=== PATIENT | female | born 1960 | race Caucasian/White ===

== ENCOUNTER 2016-05-30 11:54 | Emergency (ER) | payer OTHER ==
[~2016-05-30] VITALS: Ht 170.2 cm; Wt 67.0 kg
[~2016-05-30 11:54] MED LIST: ADULT LOW DOSE81 M1 PO; ALEVE220 M2 PO; ATROVENT 0.06% NS; AZULFIDINE500 MG PO; Azulfidine PO; BENTYL10 MG PO; BENTYL20 MG PO; CELEXA20 MG PO; COLACE100 MG PO; CORTEF5 M1 PO; CREON 20 EC CA497 MG PO; CREON PO; CYCLOBENZAPRINE10 MG PO; DILAUDID2 MG PO; EFFEXOR XR150 MG PO; Effexor XR PO; FLEET ENEMA-AD118 ML PR; FOLIC ACID1 MG PO; FOSAMAX70 M1 PO; Fosamax PO; GEODON60 MG PO; GEODON80 MG PO; HYDROCODON-ACE1 EAC8 PO; HYDROCORTISONE5 MG PO; Habitrol,Nicoderm CQ TD; KADIAN30 MG PO; KLONOPIN0.5 M1 PO; LIDODERM 5% P1 PATCH TD; LORTAB 7.5-3251 EACH PO; LOVASTATIN40 MG PO; MELOXICAM15 MG PO; MILK OF MAGN PO; MORPHINE SULFAT15 M1 PO; NEURONTIN300 MG PO; NEURONTIN600 M1 PO; NEXIUM40 MG PO; NITROLINGUAL4.9 GM MM; Neurontin PO; POTASSIUM GLUCONATE PO; PREDNISONE5 M2 PO; Proventil,Ventolin H IH; SENOKOT S,PE1 TABLET PO; STAGESIC 5-5001 EACH PO; SULFAZINE EC500 MG PO; SYMBICORT60 INHALAT IH; Symbicort 160-4.5 mc IH; THERAGRAN1 TABLET PO; Tylenol Regular Stre PO; VENLAFAXINE HC150 M1 PO; VENTOLIN HFA18 GM IH; VICODIN 5-3001 EACH PO; VITAMIN D50000 UNI1 PO; VOLTAREN 1% GE100 GM TP; Vicodin,Norco 5/325 PO; Vitamin D, Drisdol PO; XANAX0.25 MG PO; ZANTAC150 M1 PO; ZIPRASIDONE HCL40 MG PO; Zocor PO; celeXA PO; predniSONE PO
[2016-05-30 13:21] LABS: ADD MIUA? NO; BILIRUBIN NEGATIVE; BLOOD NEGATIVE; COLOR YELLOW ((YELLOW)); GLUCOSE (STRIP) NEGATIVE; KETONES NEGATIVE; LEUKOCYTES NEGATIVE; NITRITE NEGATIVE; PROTEIN (STRIP) NEGATIVE; SPECIFIC GRAVITY 1.006 (1.000-1.030); UCUL ADDED? NO; UROBILINOGEN 0.2 MG/DL (0.2-1.0)
[2016-05-30 14:50] LABS: HEMATOCRIT 37.7 % (36.0-46.0); MCH 29.5 PG (29.0-34.0); MCHC 32.4 G/DL (30.0-36.0); MCV 91.3 FL (83-99); MEAN PLAT.VOLUME 11.4 uM^3 (9.5-12.4); PLATELET COUNT 233 K/uL (156-360); RBC DIS.WIDTH-CV 15.3 % (11.8-14.6); RED BLOOD COUNT 4.13 M/uL (3.80-5.20); WHITE BLOOD COUNT 15.8 K/uL (4.1-10.2)
[2016-05-30 14:58] LABS: CHLORIDE 105 mEq/L (99-109)
[2016-05-30 14:59] LABS: POTASSIUM 4.3 mEq/L (3.7-5.4); SODIUM 141 mEq/L (136-147)
[2016-05-30 15:01] LABS: GLUCOSE 98 mg/dL (70-99)
[2016-05-30 15:02] LABS: ANION GAP 9 MEQ/L (2-14)
[2016-05-30 15:03] LABS: TOTAL BILIRUBIN 0.3 mg/dL (0.0-1.0)
[2016-05-30 15:04] LABS: ALKALINE PHOSPHATASE 88 IU/L (3-129); GFR ESTIMATE (CALCULATED) > 59 mL/min/
[2016-05-30 15:06] LABS: UREA NITROGEN (BUN) 12 mg/dL (9-23)
[2016-05-30 15:08] LABS: CREATINE KINASE 160 IU/L (1-294); LIPASE 42 U/L (1.0-51.0); TOTAL CK 160 IU/L (1-294)
[2016-05-30 15:15] LABS: CK-MB 2.3 ng/mL (0.0-4.9)
[2016-05-30] MEDS ORDERED: ULTRAM50 MG PO (15:41)
[2016-05-30 15:59] VITALS: BP 145/66
== END 2016-05-30 16:33 | disposition home or self-care (01) ==
LOC: RME 11:54 → EME 11:54 → RME 16:33
PROVIDERS: Physician Assistant
DX: R10.9 Unspecified abdominal pain (principal); Z87.440 Personal history of urinary (tract) infections; G89.29 Other chronic pain; J44.9 Chronic obstructive pulmonary disease, unspecified; M79.7 Fibromyalgia; K21.9 Gastro-esophageal reflux disease without esophagitis; R56.9 Unspecified convulsions; Z85.828 Personal history of other malignant neoplasm of skin; F17.200 Nicotine dependence, unspecified, uncomplicated
CPT/HCPCS: 74176; 80053; 81003; 82550; 82553; 83690; 85027; 99281; 99283

== ENCOUNTER 2016-06-22 14:40 | Emergency (ER) | payer OTHER ==
[~2016-06-22] VITALS: Ht 170.2 cm; Wt 65.9 kg
[~2016-06-22 14:40] MED LIST changes: +ULTRAM50 MG PO
[2016-06-22 15:15] LABS: HEMATOCRIT 36.6 % (36.0-46.0); MCH 30.5 PG (29.0-34.0); MCHC 33.1 G/DL (30.0-36.0); MCV 92.2 FL (83-99); MEAN PLAT.VOLUME 11.4 uM^3 (9.5-12.4); PLATELET COUNT 249 K/uL (156-360); RBC DIS.WIDTH-CV 15.5 % (11.8-14.6); RBC DIS.WIDTH-SD 50.2 % (39-53); RED BLOOD COUNT 3.97 M/uL (3.80-5.20); WHITE BLOOD COUNT 14.7 K/uL (4.1-10.2)
[2016-06-22 15:24] LABS: CHLORIDE 106 mEq/L (99-109); POTASSIUM 4.2 mEq/L (3.7-5.4)
[2016-06-22 15:25] LABS: SODIUM 143 mEq/L (136-147)
[2016-06-22 15:26] LABS: GLUCOSE 86 mg/dL (70-99)
[2016-06-22 15:28] LABS: ANION GAP 9 MEQ/L (2-14)
[2016-06-22 15:30] LABS: GFR ESTIMATE (CALCULATED) > 59 mL/min/
[2016-06-22 15:31] LABS: UREA NITROGEN (BUN) 7 mg/dL (9-23)
[2016-06-22] MEDS ORDERED: GABAPENTIN600 MG PO ×2 (17:37→17:39)
[2016-06-22] MEDS ORDERED: NEURONTIN600 MG PO (17:38)
[2016-06-22] MEDS ORDERED: POTASSIUM-9999 MG PO (17:43)
[2016-06-22] MEDS ORDERED: TIZANIDINE HCL2 MG PO (19:27)
[2016-06-22] MEDS ORDERED: MEDROL DOSEPAK4 MG PO (19:27)
[2016-06-22 20:14] VITALS: BP 137/56
== END 2016-06-22 20:19 | disposition home or self-care (01) ==
LOC: EME 14:40
DX: R20.2 Paresthesia of skin (principal); S16.1XXA Strain of muscle, fascia and tendon at neck level, initial encounter; G89.29 Other chronic pain; J44.9 Chronic obstructive pulmonary disease, unspecified; M79.7 Fibromyalgia; K21.9 Gastro-esophageal reflux disease without esophagitis; R56.9 Unspecified convulsions; Z85.828 Personal history of other malignant neoplasm of skin; F17.200 Nicotine dependence, unspecified, uncomplicated
CPT/HCPCS: 70450; 71020; 72125; 80048; 85027; 93005; 99281; 99284; J7512

== ENCOUNTER 2017-07-28 17:34 | Emergency (ER) | payer OTHER ==
[~2017-07-28] VITALS: Ht 167.6 cm; Wt 61.6 kg
[~2017-07-28 17:34] MED LIST changes: +GABAPENTIN600 MG PO; +MEDROL DOSEPAK4 MG PO; +NEURONTIN600 MG PO; +POTASSIUM-9999 MG PO; +TIZANIDINE HCL2 MG PO
[2017-07-28 18:13] LABS: HEMATOCRIT 37.4 % (36.0-46.0); HEMOGLOBIN 12.3 G/DL (11.9-15.5); MCH 31.2 PG (29.0-34.0); MCHC 32.9 G/DL (30.0-36.0); MCV 94.9 FL (83-99); RBC DIS.WIDTH-CV 17.8 % (11.8-14.6); RBC DIS.WIDTH-SD 61.3 % (39-53); RED BLOOD COUNT 3.94 M/uL (3.80-5.20); WHITE BLOOD COUNT 12.3 K/uL (4.1-10.2)
[2017-07-28 18:18] LABS: PLATELET COUNT 331 K/uL (156-360)
[2017-07-28 18:24] LABS: CHLORIDE 108 mEq/L (99-109); SODIUM 141 mEq/L (136-147)
[2017-07-28 18:26] LABS: GLUCOSE 109 mg/dL (70-99)
[2017-07-28 18:30] LABS: CREATININE 0.7 mg/dL (0.6-1.3); GFR ESTIMATE (CALCULATED) > 59 mL/min/
[2017-07-28 18:31] LABS: UREA NITROGEN (BUN) 11 mg/dL (9-23)
[2017-07-28 19:08] LABS: ALBUMIN 3.7 g/dL (3.2-4.8)
[2017-07-28 19:11] LABS: TOTAL PROTEIN 6.4 g/dL (6.4-8.3)
[2017-07-28 19:13] LABS: TOTAL BILIRUBIN 0.3 mg/dL (0.0-1.0)
[2017-07-28 19:14] LABS: ALKALINE PHOSPHATASE 61 IU/L (3-129)
[2017-07-28 19:16] LABS: AST (GOT) 37 IU/L (2-34); DIRECT BILIRUBIN 0.2 mg/dL (0.0-0.3)
[2017-07-28 19:17] LABS: ALT (GPT) 37 IU/L (3-49); LIPASE 4 U/L (1.0-51.0)
[2017-07-28 21:39] LABS: APPEARANCE CLEAR ((CLEAR)); BILIRUBIN NEGATIVE; BLOOD SMALL; COLOR STRAW ((YELLOW)); GLUCOSE (STRIP) NEGATIVE; KETONES NEGATIVE; LEUKOCYTES NEGATIVE; NITRITE NEGATIVE; PROTEIN (STRIP) NEGATIVE; SPECIFIC GRAVITY 1.027 (1.000-1.030); UROBILINOGEN 0.2 MG/DL (0.2-1.0)
[2017-07-28 21:41] LABS: BACTERIA NONE SEEN /HPF; EPITHELIAL CELLS RARE /HPF; MUCUS NONE SEEN /LPF; RED BLOOD CELLS 0-5 /HPF (0-5); UCUL ADDED? NO; WHITE BLOOD CELLS 0-5 /HPF (0-5)
[2017-07-28 22:48] VITALS: BP 153/88
== END 2017-07-28 23:02 | disposition home or self-care (01) ==
LOC: EME 17:34
DX: K59.00 Constipation, unspecified (principal); R10.9 Unspecified abdominal pain; R31.9 Hematuria, unspecified; J44.9 Chronic obstructive pulmonary disease, unspecified; F32.9 Major depressive disorder, single episode, unspecified; M79.7 Fibromyalgia; K21.9 Gastro-esophageal reflux disease without esophagitis; F41.9 Anxiety disorder, unspecified; R56.9 Unspecified convulsions; F17.200 Nicotine dependence, unspecified, uncomplicated; Z85.828 Personal history of other malignant neoplasm of skin; Z88.6 Allergy status to analgesic agent
CPT/HCPCS: 74177; 80048; 80076; 81003; 83605; 83690; 85027; 99281; 99284; J7030

== ENCOUNTER 2017-10-12 16:55 | Observation (INO) | payer OTHER ==
[~2017-10-12] VITALS: Ht 167.6 cm; Wt 56.8 kg
[~2017-10-12 16:55] MED LIST changes: -MORPHINE SULFAT15 M1 PO; +MORPHINE SULFAT15 MG PO
[2017-10-12 17:47] LABS: HEMATOCRIT 36.6 % (36.0-46.0); HEMOGLOBIN 12.7 G/DL (11.9-15.5); MCHC 34.7 G/DL (30.0-36.0); MCV 92.2 FL (83-99); PLATELET COUNT 168 K/uL (156-360); RBC DIS.WIDTH-CV 16.5 % (11.8-14.6); RED BLOOD COUNT 3.97 M/uL (3.80-5.20); WHITE BLOOD COUNT 21.1 K/uL (4.1-10.2)
[2017-10-12 17:58] LABS: ALBUMIN 3.8 g/dL (3.2-4.8); CHLORIDE 110 mEq/L (99-109); POTASSIUM 3.4 mEq/L (3.7-5.4); SODIUM 141 mEq/L (136-147)
[2017-10-12 18:00] LABS: GLUCOSE 110 mg/dL (70-99); TOTAL PROTEIN 6.5 g/dL (6.4-8.3)
[2017-10-12 18:02] LABS: TOTAL BILIRUBIN 0.5 mg/dL (0.0-1.0)
[2017-10-12 18:04] LABS: ALKALINE PHOSPHATASE 86 IU/L (3-129); GFR ESTIMATE (CALCULATED) > 59 mL/min/
[2017-10-12 18:05] LABS: UREA NITROGEN (BUN) 18 mg/dL (9-23)
[2017-10-12 18:06] LABS: AST (GOT) 35 IU/L (2-34)
[2017-10-12 18:07] LABS: ALT (GPT) 171 IU/L (3-49)
[2017-10-12 18:33] LABS: LIPASE 115 U/L (1.0-51.0)
[2017-10-12 21:24] LABS: APPEARANCE CLEAR ((CLEAR)); BILIRUBIN NEGATIVE; BLOOD NEGATIVE; COLOR AMBER ((YELLOW)); GLUCOSE (STRIP) NEGATIVE; KETONES NEGATIVE; LEUKOCYTES NEGATIVE; NITRITE POSITIVE; PROTEIN (STRIP) NEGATIVE; SPECIFIC GRAVITY 1.036 (1.000-1.030)
[2017-10-12 21:26] LABS: BACTERIA NONE SEEN /HPF; EPITHELIAL CELLS NONE SEEN /HPF; MUCUS TRACE /LPF; RED BLOOD CELLS 0-5 /HPF (0-5); UCUL ADDED? NO; WHITE BLOOD CELLS 0-5 /HPF (0-5)
[2017-10-12] MEDS ORDERED: FLORINEF ACETA0.1 MG PO (21:58)
[2017-10-12] MEDS ORDERED: CRESTOR40 MG PO (21:59)
[2017-10-12] MEDS ORDERED: FLONASE16 G1 BOTH NARES (22:00)
[2017-10-12] MEDS ORDERED: SYMBICORT60 INHALAT IH (22:02)
[2017-10-12] MEDS ORDERED: FLEXERIL10 MG PO (22:02)
[2017-10-12] MEDS ORDERED: FOLIC ACID1 MG PO (22:03)
[2017-10-12] MEDS ORDERED: VENTOLIN HFA18 GM IH (22:04)
[2017-10-12] MEDS ORDERED: ALEVE220 M2 PO (22:05)
[2017-10-12] MEDS ORDERED: TYLENOL EXTRA500 MG PO (22:06)
[2017-10-12] MEDS ORDERED: LO-DOSE ASPIRIN81 M2 PO (22:07)
[2017-10-12] MEDS ORDERED: METHOTREXATE2.5 MG PO (22:09)
[2017-10-12] MEDS ORDERED: VITAMIN D2000 UNIT PO (22:10)
[2017-10-12] MEDS ORDERED: ATARAX10 MG PO (22:13)
[2017-10-12 23:59] VITALS: BP 137/65
[2017-10-13 04:37] VITALS: BP 113/78
[2017-10-13 05:49] LABS: BASOPHIL (%) 0.3 % (0-1); BASOPHIL COUNT 0.1 K/uL (0-0.1); EOSINOPHIL (%) 0.7 % (0-5); EOSINOPHIL COUNT 0.1 K/uL (0-0.3); HEMATOCRIT 33.9 % (36.0-46.0); IMMATURE GRANULOCYTE (%) 0.5 % (0.0-0.7); LYMPHOCYTE (%) 10.9 % (15-42); LYMPHOCYTE COUNT 1.9 K/uL (1.0-2.8); MCH 31.5 PG (29.0-34.0); MCHC 32.4 G/DL (30.0-36.0); MONOCYTE (%) 4.3 % (3-12); MONOCYTE COUNT 0.8 K/uL (0-0.8); NEUTROPHIL (%) 83.3 % (45-76); NEUTROPHIL COUNT 14.8 K/uL (1.8-6.4); PLATELET COUNT 156 K/uL (156-360); RBC DIS.WIDTH-CV 16.8 % (11.8-14.6); RBC DIS.WIDTH-SD 57.9 % (39-53); RED BLOOD COUNT 3.49 M/uL (3.80-5.20); WHITE BLOOD COUNT 17.7 K/uL (4.1-10.2)
[2017-10-13 05:51] LABS: MCV 97.1 FL (83-99)
[2017-10-13 06:18] LABS: ALBUMIN 3.1 G/DL (3.2-4.8); ALKALINE PHOSPHATASE 62 IU/L (3-129); ALT (GPT) 105 IU/L (3-49); AST (GOT) 46 IU/L (2-34); CHLORIDE 119 MEQ/L (99-109); CREATININE 0.9 MG/DL (0.6-1.3); GFR ESTIMATE (CALCULATED) > 59 mL/min/; GLUCOSE 99 mg/dL (70-99); LIPASE 33 U/L (1.0-51.0); SODIUM 146 MEQ/L (136-147); TOTAL BILIRUBIN 0.5 MG/DL (0.0-1.0); TOTAL PROTEIN 5.1 G/DL (6.4-8.3); UREA NITROGEN (BUN) 12 mg/dL (9-23)
[2017-10-13 06:25] LABS: POTASSIUM 4.2 MEQ/L (3.7-5.4)
[2017-10-13 07:38] VITALS: BP 102/53
[2017-10-13 11:44] VITALS: BP 123/58
[2017-10-13 12:47] LABS: MAGNESIUM 1.9 mg/dl (1.3-2.7)
[2017-10-13 15:34] VITALS: BP 84/50
[2017-10-13 23:33] LABS: C DIFF TOXIN POSITIVE (NEGATIVE)
[2017-10-14 07:35] VITALS: BP 120/68
[2017-10-14 09:26] LABS: HEMATOCRIT 33.2 % (36.0-46.0); HEMOGLOBIN 10.5 G/DL (11.9-15.5); MCHC 31.6 G/DL (30.0-36.0); MCV 97.9 FL (83-99); PLATELET COUNT 159 K/uL (156-360); RBC DIS.WIDTH-CV 17.1 % (11.8-14.6); RBC DIS.WIDTH-SD 59.3 % (39-53); RED BLOOD COUNT 3.39 M/uL (3.80-5.20); WHITE BLOOD COUNT 12.7 K/uL (4.1-10.2)
[2017-10-14 09:49] LABS: ALKALINE PHOSPHATASE 55 IU/L (3-129); ALT (GPT) 79 IU/L (3-49); AST (GOT) 31 IU/L (2-34); CHLORIDE 113 MEQ/L (99-109); CREATININE 0.8 MG/DL (0.6-1.3); GFR ESTIMATE (CALCULATED) > 59 mL/min/; GLUCOSE 112 mg/dL (70-99); POTASSIUM 3.8 MEQ/L (3.7-5.4); SODIUM 144 MEQ/L (136-147); TOTAL BILIRUBIN 0.5 MG/DL (0.0-1.0); UREA NITROGEN (BUN) 14 mg/dL (9-23)
[2017-10-14 11:23] VITALS: BP 125/63
[2017-10-14 16:04] VITALS: BP 105/56
[2017-10-14 18:59] VITALS: BP 98/60
[2017-10-15 00:28] VITALS: BP 110/70
[2017-10-15 03:59] VITALS: BP 147/69
[2017-10-15 05:09] LABS: HEMATOCRIT 31.1 % (36.0-46.0); HEMOGLOBIN 10.1 G/DL (11.9-15.5); MCH 31.3 PG (29.0-34.0); MCHC 32.5 G/DL (30.0-36.0); MCV 96.3 FL (83-99); PLATELET COUNT 184 K/uL (156-360); RBC DIS.WIDTH-CV 16.9 % (11.8-14.6); RBC DIS.WIDTH-SD 58.7 % (39-53); RED BLOOD COUNT 3.23 M/uL (3.80-5.20); WHITE BLOOD COUNT 10.7 K/uL (4.1-10.2)
[2017-10-15 05:39] LABS: CHLORIDE 112 MEQ/L (99-109); CREATININE 0.7 MG/DL (0.6-1.3); GFR ESTIMATE (CALCULATED) > 59 mL/min/; GLUCOSE 153 mg/dL (70-99); MAGNESIUM 2.1 mg/dl (1.3-2.7); POTASSIUM 3.6 MEQ/L (3.7-5.4); SODIUM 145 MEQ/L (136-147); UREA NITROGEN (BUN) 13 mg/dL (9-23)
[2017-10-15 08:45] VITALS: BP 130/61
[2017-10-15] MEDS ORDERED: VANCOCIN HCL125 MG PO (09:26)
[2017-10-15 12:07] VITALS: BP 127/61
== END 2017-10-15 12:16 | disposition home or self-care (01) ==
LOC: EME 16:55 → EDOF 22:29 → 4SOUTH 22:29 → ENRESERV 22:30 → 4SOUTH 23:36
PROVIDERS: Hospitalist; Internal Medicine; Physician Assistant
DX: A04.71 Enterocolitis due to Clostridium difficile, recurrent (principal); R10.31 Right lower quadrant pain; R10.11 Right upper quadrant pain; R79.89 Other specified abnormal findings of blood chemistry; J44.9 Chronic obstructive pulmonary disease, unspecified; E03.9 Hypothyroidism, unspecified; M79.7 Fibromyalgia; E27.1 Primary adrenocortical insufficiency; G47.33 Obstructive sleep apnea (adult) (pediatric); E11.9 Type 2 diabetes mellitus without complications; Z91.19 Patient's noncompliance with other medical treatment and regimen; K59.00 Constipation, unspecified; F17.200 Nicotine dependence, unspecified, uncomplicated; F10.11 Alcohol abuse, in remission; E78.5 Hyperlipidemia, unspecified; K21.9 Gastro-esophageal reflux disease without esophagitis; M19.90 Unspecified osteoarthritis, unspecified site; Z79.82 Long term (current) use of aspirin; Z79.891 Long term (current) use of opiate analgesic; Z86.19 Personal history of other infectious and parasitic diseases; Z90.49 Acquired absence of other specified parts of digestive tract; Z90.710 Acquired absence of both cervix and uterus; Z88.5 Allergy status to narcotic agent; Z88.6 Allergy status to analgesic agent
CPT/HCPCS: 74177; 80048; 80053; 81003; 82948; 83605; 83690; 83735; 85025; 85027; 87040; 87086; 87493; 87506; 94640; 94640 76; 94660; 99281; 99285; G0378; J0696; J1644; J1815; J2405; J3010; J7030; S0028